=== PATIENT | male | born 1995 | race Caucasian/White ===

== ENCOUNTER → 2021-06-30 07:55 | Outpatient (BNVA) | payer OTHER, SELFPAY | PROVIDERS: Visit Provider Internal Medicine | DX: M77.8 Other enthesopathies, not elsewhere classified (principal) | CPT/HCPCS: 99203 ==

== ENCOUNTER → 2021-07-10 12:56 | Outpatient (BNVA) | payer OTHER, SELFPAY | PROVIDERS: Visit Provider Internal Medicine | DX: M79.641 Pain in right hand (principal); M25.531 Pain in right wrist | CPT/HCPCS: 99213 ==

== ENCOUNTER → 2021-07-18 13:03 | Outpatient (BNVA) | payer OTHER, SELFPAY | PROVIDERS: Visit Provider Internal Medicine | DX: M65.241 Calcific tendinitis, right hand (principal) | CPT/HCPCS: 99213 ==

== ENCOUNTER → 2021-08-01 11:10 | Outpatient (BNVA) | payer OTHER, SELFPAY | PROVIDERS: Visit Provider Internal Medicine | DX: M25.531 Pain in right wrist (principal); M79.641 Pain in right hand; R20.0 Anesthesia of skin | CPT/HCPCS: 99213 ==